=== PATIENT | female | born 1950 | race Caucasian/White ===

== ENCOUNTER → 2019-09-07 08:59 | Outpatient (CLI) | payer OTHER, SELFPAY ==
[2019-09-07 10:12] LABS: Add Manual Diff / Slide Review NO; Basophils Absolute Auto 0 /uL (0-100); Basophils Percent Auto 0.6 % (0-2); Eosinophils Absolute Auto 100 /uL (0-450); Eosinophils Percent Auto 1.7 % (2-4); Hematocrit 41.5 % (36-46); Hemoglobin 13.8 g/dL (12.0-16.0); Lymphocytes Absolute Auto 1600 /uL (1100-4500); Lymphocytes Percent Auto 43.2 % (25-40); Mean Corpuscular HGB Conc 33.3 % (30-36); Mean Corpuscular Hemoglobin 28.6 PG (26-34); Mean Corpuscular Volume 85.9 fL (80-100); Monocytes Absolute Auto 400 /uL (0-900); Monocytes Percent Auto 11.1 % (3-14); Neutrophils Absolute Auto 1600 /uL (1500-7000); Neutrophils Percent Auto 43.4 % (50-75); Platelet Count 267 X10^3/uL (150-400); Red Blood Cell Count 4.83 X10^6/uL (4.0-5.2); White Blood Cell Count 3.8 X10^3/uL (4.5-11.0)
[2019-09-07 10:31] LABS: Erythrocyte Sedimentation Rate 6 MM/HR (0-20)
[2019-09-07 10:38] LABS: Alanine Aminotransferase 17 IU/L (<35); Albumin 4.7 g/dL (3.5-5.0); Albumin Globulin Ratio 1.5 (1.0-2.8); Alkaline Phosphatase 69 U/L (38-126); Aspartate Aminotransferase 27 IU/L (14-36); BUN Creatinine Ratio 27.3 (6-22); Bilirubin Total 0.5 mg/dL (0.2-1.3); Blood Urea Nitrogen 21 mg/dL (7-17); Calcium 10.1 mg/dL (8.4-10.2); Carbon Dioxide 28 mmol/L (22-32); Chloride 104 mmol/L (98-107); Cholesterol 236 mg/dL (140-199); Estimated Glomerular Filt Rate > 60.0 mL/min (>60); Globulin 3.1 g/dL (1.7-4.1); Glucose 94 mg/dL (80-110); HDL Cholesterol 82 mg/dL (40-60); HEMOLYSIS < 15 (0-50); LDL Cholesterol Calculated 136 mg/dL (<100); Potassium 3.9 mmol/L (3.4-5.1); Sodium 141 mmol/L (137-145); Total Protein 7.8 g/dL (6.3-8.2); Triglycerides 88 mg/dL (35-150)
[2019-09-07 10:44] LABS: C-Reactive Protein Quant < 0.5 mg/dL (<1.0)
[2019-09-07 10:52] LABS: Free T4, Direct Thyroxine 0.83 ng/dL (0.78-2.19)
[2019-09-07 11:06] LABS: Thyroid Stimulating Hormone 4.75 uIU/mL (0.47-4.68)
== END ==
PROVIDERS: PCP Internal Medicine; Referring Provider Internal Medicine; Visit Provider Internal Medicine
DX: Z13.220 Encounter for screening for lipoid disorders (principal); Z13.6 Encounter for screening for cardiovascular disorders; Z79.01 Long term (current) use of anticoagulants; Z86.010 Personal history of colon polyps; I48.0 Paroxysmal atrial fibrillation; R63.4 Abnormal weight loss
CPT/HCPCS: 36415; 80053; 80061; 84439; 84443; 85025; 85651; 86140

== ENCOUNTER → 2020-02-02 10:42 | Outpatient (CLI) | payer OTHER, SELFPAY ==
[2020-02-02 11:40] LABS: Add Manual Diff / Slide Review NO; Basophils Absolute Auto 0 /uL (0-100); Basophils Percent Auto 0.7 % (0-2); Eosinophils Absolute Auto 0 /uL (0-450); Eosinophils Percent Auto 0.9 % (2-4); Hematocrit 40.1 % (36-46); Hemoglobin 13.2 g/dL (12.0-16.0); Lymphocytes Absolute Auto 1400 /uL (1100-4500); Lymphocytes Percent Auto 31.5 % (25-40); Mean Corpuscular HGB Conc 32.9 % (30-36); Mean Corpuscular Hemoglobin 28.3 PG (26-34); Monocytes Absolute Auto 500 /uL (0-900); Monocytes Percent Auto 11.2 % (3-14); Neutrophils Absolute Auto 2500 /uL (1500-7000); Neutrophils Percent Auto 55.7 % (50-75); Platelet Count 260 X10^3/uL (150-400); Red Blood Cell Count 4.66 X10^6/uL (4.0-5.2); Red Cell Distribution Width 14.8 % (11.6-14.8); White Blood Cell Count 4.5 X10^3/uL (4.5-11.0)
[2020-02-02 12:02] LABS: Alanine Aminotransferase 15 IU/L (<35); Albumin 4.5 g/dL (3.5-5.0); Albumin Globulin Ratio 1.8 (1.0-2.8); Alkaline Phosphatase 69 U/L (38-126); Aspartate Aminotransferase 27 IU/L (14-36); BUN Creatinine Ratio 27.4 (6-22); Bilirubin Total 0.6 mg/dL (0.2-1.3); Blood Urea Nitrogen 20 mg/dL (7-17); Calcium 9.9 mg/dL (8.4-10.2); Carbon Dioxide 31 mmol/L (22-32); Chloride 103 mmol/L (98-107); Estimated Glomerular Filt Rate > 60.0 mL/min (>60); Globulin 2.5 g/dL (1.7-4.1); Glucose 86 mg/dL (80-110); HEMOLYSIS < 15 (0-50); Potassium 4.6 mmol/L (3.4-5.1); Sodium 138 mmol/L (137-145)
[2020-02-02 12:18] LABS: Free T4, Direct Thyroxine 0.82 ng/dL (0.78-2.19)
[2020-02-02 12:32] LABS: Thyroid Stimulating Hormone 2.61 uIU/mL (0.47-4.68)
== END ==
PROVIDERS: PCP Internal Medicine; Referring Provider Internal Medicine; Visit Provider Internal Medicine
DX: I48.0 Paroxysmal atrial fibrillation (principal); Z79.01 Long term (current) use of anticoagulants
CPT/HCPCS: 36415; 80053; 84439; 84443; 85025

== ENCOUNTER → 2020-12-06 17:19 | Outpatient (CLI) | payer OTHER, SELFPAY ==
--- NOTE | 2020-12-06 17:19 | DI.MG.S_ITS ---
BILATERAL DIGITAL SCREENING MAMMOGRAM 3D/2D WITH CAD: 12/06/2020 CLINICAL: Routine screening. Comparison is made to exams dated: 06/24/2019 mammogram, 12/01/2017 mammogram, and 10/27/2016 mammogram - [facility]. The tissue of both breasts is heterogeneously dense. This may lower the sensitivity of mammography. Current study was also evaluated with a Computer Aided Detection (CAD) system. There are benign calcifications in both breasts. There also are benign post operative findings and biopsy clip in the right breast. No significant masses, calcifications, or other findings are seen in either breast. There has been no significant interval change. IMPRESSION: BENIGN There is no mammographic evidence of malignancy. A 1 year screening mammogram is recommended. This exam was interpreted at Station ID: [id number]. NOTE: For mammograms, a report in lay terms will be sent to the patient. Approximately 15% of breast malignancies will not be visualized mammographically. In the management of a palpable breast mass, a negative mammogram must not discourage biopsy of a clinically suspicious lesion. Electronically Signed By: David hicks/vick:12/09/2020 08:11:40 letter sent: Normal Exam ACR BI-RADS Category 2: Benign Finding(s) 3342F
== END ==
PROVIDERS: PCP Internal Medicine; Referring Provider Internal Medicine; Visit Provider Internal Medicine
DX: Z12.31 Encounter for screening mammogram for malignant neoplasm of breast (principal)
CPT/HCPCS: 77063; 77067

== ENCOUNTER → 2021-01-02 16:29 | Outpatient (CLI) | payer OTHER, SELFPAY ==
--- NOTE | 2021-01-02 16:31 | DI.RAD.S_ITS ---
PROCEDURE: XR ABDOMEN MIN 2V INDICATIONS: abd pain, generalized TECHNIQUE: 2 views of the abdomen were acquired. COMPARISON: None. FINDINGS: Surgical changes and devices: None. Bowel: No pneumoperitoneum. The bowel gas pattern is normal. Moderate stool is seen throughout the colon. Soft tissues: No masses; visualized solid organ contours appear normal in size. No suspicious abdominal calcifications. Bones: No suspicious bony abnormalities. Mild degenerative changes are seen in the spine. IMPRESSION: Nonspecific nonobstructive bowel gas pattern. Moderate stool in the colon. Dictated by: Ja Ma M.D. on 01/02/2021 at 17:13 Approved by: Ja Ma M.D. on 01/02/2021 at 17:14
[2021-01-02 17:41] LABS: Add Manual Diff / Slide Review NO; Basophils Absolute Auto 0 /uL (0-100); Basophils Percent Auto 0.5 % (0-2); Eosinophils Absolute Auto 0 /uL (0-450); Eosinophils Percent Auto 0.7 % (2-4); Hematocrit 40.1 % (36-46); Hemoglobin 13.2 g/dL (12.0-16.0); Lymphocytes Absolute Auto 1600 /uL (1100-4500); Lymphocytes Percent Auto 35.7 % (25-40); Mean Corpuscular Hemoglobin 28.3 PG (26-34); Mean Corpuscular Volume 85.7 fL (80-100); Monocytes Absolute Auto 400 /uL (0-900); Monocytes Percent Auto 9.7 % (3-14); Neutrophils Absolute Auto 2400 /uL (1500-7000); Neutrophils Percent Auto 53.4 % (50-75); Platelet Count 247 X10^3/uL (150-400); Red Blood Cell Count 4.68 X10^6/uL (4.0-5.2); Red Cell Distribution Width 14.6 % (11.6-14.8); White Blood Cell Count 4.5 X10^3/uL (4.5-11.0)
[2021-01-02 18:24] LABS: Alanine Aminotransferase 18 IU/L (<35); Albumin 4.5 g/dL (3.5-5.0); Albumin Globulin Ratio 1.6 (1.0-2.8); Alkaline Phosphatase 60 U/L (38-126); Amylase 77 U/L (30-110); Aspartate Aminotransferase 31 IU/L (14-36); Bilirubin Total 0.5 mg/dL (0.2-1.3); Blood Urea Nitrogen 18 mg/dL (7-17); Calcium 9.7 mg/dL (8.4-10.2); Carbon Dioxide 26 mmol/L (22-32); Chloride 105 mmol/L (98-107); Estimated Glomerular Filt Rate > 60.0 mL/min (>60); Globulin 2.9 g/dL (1.7-4.1); Glucose 91 mg/dL (80-110); HEMOLYSIS < 15 (0-50); Lipase 163 U/L (23-300); Potassium 4.2 mmol/L (3.4-5.1); Sodium 140 mmol/L (137-145); Total Protein 7.4 g/dL (6.3-8.2)
== END ==
PROVIDERS: PCP Internal Medicine; Referring Provider Internal Medicine; Visit Provider Internal Medicine
DX: R10.9 Unspecified abdominal pain (principal); I10 Essential (primary) hypertension
CPT/HCPCS: 36415; 74019; 80053; 82150; 83690; 85025

== ENCOUNTER → 2021-01-14 09:34 | Outpatient (CLI) | payer OTHER, SELFPAY ==
--- NOTE | 2021-01-14 09:35 | DI.US.S_ITS ---
PROCEDURE: US ABDOMEN COMPLETE INDICATIONS: ABDOMEN PAIN TECHNIQUE: Real-time scanning was performed of the abdominal and retroperitoneal organs, with image documentation. COMPARISON: None. FINDINGS: Liver: Liver is normal in size and homogeneous in echotexture. Multiple small liver cysts can be seen. Within the right liver, there is a nonvascular, nonshadowing hyperechoic lesion seen that measures up to 2.6 cm. Gallbladder: No findings of gallstones or sludge are seen. The gallbladder wall is not thickened, measuring 3 mm or less. No specific pericholecystic fluid is seen. The sonographic Hayes sign is negative. Biliary ducts: Intrahepatic bile ducts are non-dilated. Extrahepatic bile duct caliber measures 6-7 mm. Normal is 6-7 mm or less in diameter, or 10 mm or less post-cholecystectomy. Pancreas: Visualized portions of the pancreas are sonographically normal. Spleen: Spleen is normal in size and homogeneous in echotexture. Kidneys: Kidneys are normal in size and echotexture. Right kidney measures 10.7 cm long; left kidney measures 12.2 cm long. No hydronephrosis or nephrolithiasis. No solid masses. Aorta: Visualized aorta is normal in caliber at less than 3 cm. Iliacs: Proximal common iliac arteries are normal in caliber at less than 2.5 cm. IVC: Intrahepatic inferior vena cava is patent. Miscellaneous: No free abdominal fluid. IMPRESSION: The gallbladder demonstrates a normal sonographic appearance. No biliary dilatation is seen. There is a presumed 2.6 cm liver hemangioma seen. Multiple simple appearing liver cysts are also seen. Dictated by: Bertram Munoz M.D. on 01/14/2021 at 10:26 Approved by: Bertram Munoz M.D. on 01/14/2021 at 10:28
== END ==
PROVIDERS: PCP Internal Medicine; Referring Provider Internal Medicine; Visit Provider Internal Medicine
DX: R10.9 Unspecified abdominal pain (principal); K76.89 Other specified diseases of liver
CPT/HCPCS: 76700

== ENCOUNTER → 2021-12-08 14:19 | Outpatient (CLI) | payer OTHER, SELFPAY ==
--- NOTE | 2021-12-08 14:20 | DI.MG.S_ITS ---
BILATERAL DIGITAL SCREENING MAMMOGRAM 3D/2D WITH CAD: 12/08/2021 CLINICAL: Routine screening. Comparison is made to exams dated: 12/06/2020 mammogram - [facility], 06/24/2019 mammogram, and 12/01/2017 mammogram - [facility]. The tissue of both breasts is heterogeneously dense. This may lower the sensitivity of mammography. Current study was also evaluated with a Computer Aided Detection (CAD) system. There are benign calcifications in both breasts. There also are benign post operative findings and biopsy clip in the right breast. No significant masses, calcifications, or other findings are seen in either breast. There has been no significant interval change. IMPRESSION: BENIGN There is no mammographic evidence of malignancy. A 1 year screening mammogram is recommended. This exam was interpreted at Station ID: [id number]. NOTE: For mammograms, a report in lay terms will be sent to the patient. Approximately 15% of breast malignancies will not be visualized mammographically. In the management of a palpable breast mass, a negative mammogram must not discourage biopsy of a clinically suspicious lesion. Electronically Signed By: Ja carrillo/vick:12/08/2021 15:35:59 letter sent: Normal Exam ACR BI-RADS Category 2: Benign Finding(s) 3342F
== END ==
PROVIDERS: PCP Internal Medicine; Referring Provider Internal Medicine; Visit Provider Internal Medicine
DX: Z12.31 Encounter for screening mammogram for malignant neoplasm of breast (principal)
CPT/HCPCS: 77063; 77067

== ENCOUNTER → 2022-03-03 15:08 | Outpatient (CLI) | payer OTHER, SELFPAY ==
[2022-03-03 16:42] LABS: Add Manual Diff / Slide Review NO; Basophils Absolute Auto 0 /uL (0-100); Basophils Percent Auto 0.3 % (0-2); Eosinophils Absolute Auto 0 /uL (0-450); Eosinophils Percent Auto 0.9 % (2-4); Hematocrit 37.8 % (36-46); Hemoglobin 12.7 g/dL (12.0-16.0); Lymphocytes Absolute Auto 1400 /uL (1100-4500); Lymphocytes Percent Auto 32.6 % (25-40); Mean Corpuscular HGB Conc 33.6 % (30-36); Mean Corpuscular Hemoglobin 28.3 PG (26-34); Mean Corpuscular Volume 84.3 fL (80-100); Monocytes Absolute Auto 400 /uL (0-900); Monocytes Percent Auto 9.3 % (3-14); Neutrophils Absolute Auto 2500 /uL (1500-7000); Neutrophils Percent Auto 56.9 % (50-75); Platelet Count 251 X10^3/uL (150-400); Red Blood Cell Count 4.49 X10^6/uL (4.0-5.2); Red Cell Distribution Width 14.7 % (11.6-14.8); White Blood Cell Count 4.4 X10^3/uL (4.5-11.0)
[2022-03-03 16:57] LABS: Alanine Aminotransferase 13 IU/L (<35); Albumin 4.1 g/dL (3.5-5.0); Albumin Globulin Ratio 1.4 (1.0-2.8); Alkaline Phosphatase 55 U/L (38-126); Aspartate Aminotransferase 25 IU/L (14-36); Bilirubin Total 0.4 mg/dL (0.2-1.3); Blood Urea Nitrogen 27 mg/dL (7-17); Calcium 8.8 mg/dL (8.4-10.2); Carbon Dioxide 28 mmol/L (22-32); Chloride 105 mmol/L (98-107); Estimated Glomerular Filt Rate > 60 mL/min (>60); Globulin 2.9 g/dL (1.7-4.1); Glucose 105 mg/dL (80-110); HEMOLYSIS < 15 (0-50); Potassium 3.5 mmol/L (3.4-5.1); Sodium 140 mmol/L (137-145)
== END ==
PROVIDERS: PCP Internal Medicine; Referring Provider Internal Medicine; Visit Provider Internal Medicine
DX: I48.0 Paroxysmal atrial fibrillation (principal); M85.80 Other specified disorders of bone density and structure, unspecified site; Z79.01 Long term (current) use of anticoagulants
CPT/HCPCS: 36415; 80053; 85025

== ENCOUNTER → 2022-12-28 16:01 | Outpatient (CLI) | payer OTHER, SELFPAY ==
--- NOTE | 2022-12-28 | DI.MG.S_ITS ---
BILATERAL DIGITAL SCREENING MAMMOGRAM 3D/2D WITH CAD: 12/28/2022 CLINICAL: Routine screening. Comparison is made to exams dated: 12/08/2021 mammogram, 12/06/2020 mammogram - [facility], and 06/24/2019 mammogram - [facility]. Both breasts are heterogeneously dense, which may obscure small masses (category c / 51-75% glandular tissue). Current study was also evaluated with a Computer Aided Detection (CAD) system. There are benign calcifications in both breasts. There also are benign post operative findings and biopsy clip in the right breast. No significant masses, calcifications, or other findings are seen in either breast. There has been no significant interval change. IMPRESSION: BENIGN There is no mammographic evidence of malignancy. A 1 year screening mammogram is recommended. Based on the Tyrer Cuzick model (a risk assessment model) the patient's lifetime risk is 7.6% and her 10 year risk is 4.8%. According to the ACR, ACS, and NCCN guidelines, an annual breast MRI exam along with mammogram is recommended if the patient's lifetime risk is 20% or greater. This exam was interpreted at Station ID: [id number]. NOTE: For mammograms, a report in lay terms will be sent to the patient. Approximately 15% of breast malignancies will not be visualized mammographically. In the management of a palpable breast mass, a negative mammogram must not discourage biopsy of a clinically suspicious lesion. Electronically Signed By: Usama lara/vick:12/30/2022 08:08:52 letter sent: Normal Exam ACR BI-RADS Category 2: Benign Finding(s) 3342F
== END ==
PROVIDERS: PCP Internal Medicine; Referring Provider Internal Medicine; Visit Provider Internal Medicine
DX: Z12.31 Encounter for screening mammogram for malignant neoplasm of breast (principal)
CPT/HCPCS: 77063; 77067

== ENCOUNTER → 2023-03-02 15:17 | Outpatient (CLI) | payer OTHER, SELFPAY ==
--- NOTE | 2023-03-02 15:18 | DI.RAD.S_ITS ---
PROCEDURE: XR CHEST 2V INDICATIONS: cough x2 weeks, concern for pneumonia TECHNIQUE: 2 views of the chest were acquired. COMPARISON: None. FINDINGS: Surgical changes and devices: None. Lungs and pleura: Lungs are clear. No pleural effusions or pneumothorax. Mediastinum: Mediastinal contours are normal. Heart size is normal. Bones and chest wall: No suspicious bony abnormalities. Soft tissues appear unremarkable. IMPRESSION: No acute cardiopulmonary disease process. Dictated by: Eula Matthews MD, PhD on 03/02/2023 at 15:51 Approved by: Eula Matthews MD, PhD on 03/02/2023 at 15:51
== END ==
PROVIDERS: PCP Internal Medicine; Referring Provider Physician Assistant; Visit Provider Physician Assistant
DX: R05.9 Cough, unspecified (principal)
CPT/HCPCS: 71046

== ENCOUNTER → 2023-11-07 11:25 | Outpatient (CLI) | payer OTHER, SELFPAY ==
--- NOTE | 2023-11-07 11:27 | DI.RAD.S_ITS ---
PROCEDURE: XR FOOT LT MIN 3V INDICATIONS: L foot pain TECHNIQUE: 3 views of the foot were acquired. COMPARISON: None. FINDINGS: Bones: No fractures or dislocations. No suspicious bony lesions. Soft tissues: No tibiotalar joint effusion. Achilles tendon appears normal. IMPRESSION: No acute bony abnormality. Approved by: Tom Pelayo M.D. on 11/07/2023 at 11:40
== END ==
PROVIDERS: PCP Internal Medicine; Referring Provider Physician Assistant Medical; Visit Provider Physician Assistant Medical
DX: M79.672 Pain in left foot (principal)
CPT/HCPCS: 73630

== ENCOUNTER → 2024-03-03 11:12 | Outpatient (CLI) | payer OTHER, SELFPAY ==
--- NOTE | 2024-03-03 11:13 | DI.MG.S_ITS ---
BILATERAL DIGITAL SCREENING MAMMOGRAM 3D/2D WITH CAD: 03/03/2024 CLINICAL: Routine screening. Comparison is made to exams dated: 12/28/2022 mammogram, 12/08/2021 mammogram, and 12/06/2020 mammogram - [facility]. Both breasts are heterogeneously dense, which may obscure small masses (category c / 51-75% glandular tissue). Current study was also evaluated with a Computer Aided Detection (CAD) system. There is a benign mass in the left breast. There also are benign calcifications in both breasts. Additionally, there are benign post operative findings and biopsy clip in the right breast. No significant masses, calcifications, or other findings are seen in either breast. There has been no significant interval change. IMPRESSION: BENIGN There is no mammographic evidence of malignancy. A 1 year screening mammogram is recommended. Based on the Tyrer Cuzick model (a risk assessment model) the patient's lifetime risk is 7.2% and her 10 year risk is 4.9%. According to the ACR, ACS, and NCCN guidelines, an annual breast MRI exam along with mammogram is recommended if the patient's lifetime risk is 20% or greater. This exam was interpreted at Station ID: [id number]. NOTE: For mammograms, a report in lay terms will be sent to the patient. Approximately 15% of breast malignancies will not be visualized mammographically. In the management of a palpable breast mass, a negative mammogram must not discourage biopsy of a clinically suspicious lesion. Electronically Signed By: Gorge gracia/vick:03/06/2024 17:52:28 letter sent: Normal Exam ACR BI-RADS Category 2: Benign Finding(s) 3342F
== END ==
PROVIDERS: PCP Internal Medicine; Referring Provider Internal Medicine; Visit Provider Internal Medicine
DX: Z12.31 Encounter for screening mammogram for malignant neoplasm of breast (principal)
CPT/HCPCS: 77063; 77067

== ENCOUNTER → 2024-06-01 14:38 | Outpatient (CLI) | payer OTHER, SELFPAY ==
--- NOTE | 2024-06-01 15:37 | DI.RAD.S_ITS ---
PROCEDURE: XR CHEST 2V INDICATIONS: cough TECHNIQUE: 2 views of the chest were acquired. COMPARISON: [facility], CR, XR CHEST 2V, 03/02/2023, 15:26. FINDINGS: Surgical changes and devices: None. Lungs and pleura: Lungs are clear. No pleural effusions or pneumothorax. Mediastinum: Mediastinal contours are normal. Heart size is normal. Bones and chest wall: No suspicious bony abnormalities. Soft tissues appear unremarkable. IMPRESSION: No acute cardiopulmonary abnormality is seen. Approved by: Ja Ma M.D. on 06/01/2024 at 16:24
[2024-06-01 16:43] LABS: Add Manual Diff / Slide Review NO; Basophils Absolute Auto 0 /uL (0-100); Basophils Percent Auto 0.3 % (0-2); Eosinophils Absolute Auto 0 /uL (0-450); Eosinophils Percent Auto 0.7 % (2-4); Hematocrit 40.4 % (36-46); Hemoglobin 13.2 g/dL (12.0-16.0); Lymphocytes Absolute Auto 1300 /uL (1100-4500); Lymphocytes Percent Auto 32.1 % (25-40); Mean Corpuscular HGB Conc 32.7 % (30-36); Mean Corpuscular Hemoglobin 27.6 PG (26-34); Mean Corpuscular Volume 84.6 fL (80-100); Monocytes Absolute Auto 400 /uL (0-900); Monocytes Percent Auto 9.9 % (3-14); Neutrophils Absolute Auto 2300 /uL (1500-7000); Platelet Count 255 X10^3/uL (150-400); Red Blood Cell Count 4.77 X10^6/uL (4.0-5.2); Red Cell Distribution Width 15.4 % (11.6-14.8)
[2024-06-01 17:13] LABS: Cholesterol 232 mg/dL (140-199); HDL Cholesterol 91 mg/dL (40-60); LDL Cholesterol Calculated 118 mg/dL (<100); Triglycerides 117 mg/dL (35-150)
[2024-06-01 17:13] LABS: Alanine Aminotransferase 16 IU/L (<35); Albumin 4.1 g/dL (3.5-5.0); Albumin Globulin Ratio 1.4 (1.0-2.8); Alkaline Phosphatase 58 U/L (38-126); Aspartate Aminotransferase 31 IU/L (14-36); BUN Creatinine Ratio 26.7 (6-22); Bilirubin Total 0.4 mg/dL (0.2-1.3); Blood Urea Nitrogen 24 mg/dL (7-17); Calcium 9.2 mg/dL (8.4-10.2); Carbon Dioxide 26 mmol/L (22-32); Chloride 106 mmol/L (98-107); Estimated Glomerular Filt Rate > 60 mL/min (>60); Globulin 2.9 g/dL (1.7-4.1); Glucose 91 mg/dL (80-110); HEMOLYSIS < 15 (0-50); Potassium 3.8 mmol/L (3.4-5.1); Sodium 135 mmol/L (137-145)
[2024-06-01 17:29] LABS: C-Reactive Protein Quant < 0.5 mg/dL (<1.0); Vitamin D 25 Hydroxy (D3) 20.4 ng/mL (30.0-100.0)
[2024-06-01 17:54] LABS: TSH w/ Reflex to FT4 2.32 uIU/mL (0.47-4.68)
[2024-06-01 18:00] LABS: Erythrocyte Sedimentation Rate 87 MM/HR (0-20)
== END ==
PROVIDERS: PCP Internal Medicine; Referring Provider Internal Medicine; Visit Provider Internal Medicine
DX: E55.9 Vitamin D deficiency, unspecified; Z13.6 Encounter for screening for cardiovascular disorders; I48.0 Paroxysmal atrial fibrillation; Z79.01 Long term (current) use of anticoagulants; R53.83 Other fatigue; Z13.220 Encounter for screening for lipoid disorders; R05.9 Cough, unspecified
CPT/HCPCS: 36415; 71046; 80053; 80061; 82306; 84443; 85025; 85651; 86140

== ENCOUNTER 2024-06-11 16:13 | Emergency (ER) | payer OTHER, SELFPAY ==
[2024-06-11 16:15] VITALS: BP 127/81; PULSE 65; RESP 16; TEMP 36.9; O2SAT 99; BMI 22.1
--- NOTE | 2024-06-11 17:35 | ED.EXTPRO ---
HPI - Extremity Problem <Joann Fajardo PA-C - Last Filed: 06/11/24 19:43> General Chief complaint: Extremity Problem,Nontraumatic Stated complaint: rt foot swelling, px, hot to touch, AFIB Time Seen by Provider: 06/11/24 16:38 Source: patient Mode of arrival: Family Vehicle History of Present Illness HPI Narrative: 73-year-old woman presents with concern for pain in her right forefoot with swelling. Patient states that she was in [place] recently and came back last week. Since that time she is noted some mild swelling in her foot around her great toe and in the top of her foot. She states in the last 24 hours she has started to have pain it is worse when she is bearing weight and it is worse with even light touch over the top of her foot behind her toes. She has noticed a slight amount of redness. She does not believe she sustained any broken skin but does state that she often goes barefoot. She has not had any fevers or chills and denies any pain, redness, heat or swelling in her calf or any known injury or trauma to this foot. She denies any other complaints or concerns Related Data Previous Rx's Medication Instructions Recorded dabigatran etexilate 150 mg 150 mg PO BID #180 caps 06/01/24 capsule (Pradaxa) peg 3350-electrolytes 236 240 ml PO Q10M #4,000 mL 06/07/24 gram-22.74 gram-6.74 gram-5.86 gram solution (Golytely) cephalexin 500 mg capsule 500 mg PO Q8H 7 days #21 caps 06/11/24 Allergies Allergy/AdvReac Type Severity Reaction Status Date / Time No Known Drug Allergies Allergy Verified 06/01/24 14:02 Review of Systems <Joann Fajardo PA-C - Last Filed: 06/11/24 19:43> Review of Systems Narrative: See HPI Patient History <Joann Fajardo PA-C - Last Filed: 06/11/24 19:43> Medical History Adhesive capsulitis (~2009) Measles Chicken pox Anemia (~2008) Osteopenia (~2018) H/O adenomatous polyp of colon shelter current use of anticoagulant Paroxysmal atrial fibrillation (~2018) Surgical History Anesthesia History of colonoscopy (~2018) History of lumpectomy Family History Mother Lung cancer Hypertension Father Lung cancer Brother Hypertension Brother Drug overdose Grandfather Cancer Grandmother No problems noted. Grandfather Cancer Social History Smoking Status: Former smoker Smoking Status: Former smoker Exam <Joann Fajardo PA-C - Last Filed: 06/11/24 19:43> Narrative Exam Narrative: GENERAL: [73] year old patient appears stated age. Well-developed patient, in mild distress. HEAD: Atraumatic. Normocephalic. EYES: Pupils equal round and reactive. Extraocular motions intact. No scleral icterus. No injection or drainage. ENT: Nose without bleeding, purulent drainage. Airway patent. NECK: Trachea midline. CARDIOVASCULAR: Regular rate and rhythm without murmurs, gallops, or rubs. RESPIRATORY: Clear to auscultation. Breath sounds equal bilaterally. No wheezes, rales, or rhonchi. EXTREMITIES: There is mild swelling present about the distal right foot primarily the dorsum of the right foot. There is mild erythema present at the dorsum of the right foot proximal to the 2nd to 4th phalanges. There is exquisite sensitivity to light touch at this location. Tenderness with palpation under the ball of the foot as well when the foot is stretched/moved. Range of motion is intact. There is no calf tenderness popliteal fossa tenderness or calf swelling. Calves are equal in size bilaterally in circumference. Strong pedal pulse. The MTP joint itself is nontender without erythema. There is no significant erythema or erythema spreading up towards the ankle. No broken skin noted no calluses noted. No other edema or joint tenderness. NEURO: AOx3. SKIN: See extremities. No rash or erythema of visible areas Initial Vital Signs Initial Vital Signs: Vital Signs Temperature 98.4 F 06/11/24 16:15 Pulse Rate 65 06/11/24 16:15 Respiratory Rate 16 06/11/24 16:15 Blood Pressure 127/81 06/11/24 16:15 Pulse Oximetry 99 12/15/24 16:15 Oxygen Delivery Method Room Air 06/11/24 16:15 <Long Pack DO - Last Filed: 06/11/24 20:23> Initial Vital Signs Initial Vital Signs: Vital Signs Temperature 98.4 F 06/11/24 16:15 Pulse Rate 65 06/11/24 16:15 Respiratory Rate 16 06/11/24 16:15 Blood Pressure 127/81 06/11/24 16:15 Pulse Oximetry 99 06/11/24 16:15 Oxygen Delivery Method Room Air 06/11/24 16:15 Scores <Joann Fajardo PA-C - Last Filed: 06/11/24 19:43> Yesi Criteria for DVT Active Cancer (Treatment within 6 months): No Bedridden recently >3 days or major surgery within 4 weeks: No Calf Swelling >3cm compared to other leg: No Collateral (nonvericose) superficial veins present: No Entire leg swollen: No Localized tenderness along the deep vein system: No Pitting edema, confined to symtomatic leg: No Paralysis, paresis, or recent plaster immobilization of ext: No Previously documented DVT: No Alternative dx to DVT as likely or more likely: Yes Yesi criteria for DVT: -2 <DO Deena Mckeon Last Filed: 06/11/24 20:23> Yesi Criteria for DVT Wells' criteria for DVT: -2 Course <Joann Fajardo PA-C - Last Filed: 06/11/24 19:43> Orders Ordered: ED Orders 06/11/24 17:34 XR foot RT min 3V Stat Vital Signs Vital signs: Vital Signs - 8 hr 06/11/24 16:15 06/11/24 18:33 Temperature 98.4 F Pulse Rate 65 63 Respiratory Rate 16 18 Blood Pressure 127/81 139/76 Pulse Oximetry 99 100 Oxygen Delivery Method Room Air Room Air <Long Pack DO - Last Filed: 06/11/24 20:23> Orders Ordered: ED Orders 06/11/24 17:34 XR foot RT min 3V Stat Vital Signs Vital signs: Vital Signs - 8 hr 06/11/24 16:15 06/11/24 18:33 Temperature 98.4 F Pulse Rate 65 63 Respiratory Rate 16 18 Blood Pressure 127/81 139/76 Pulse Oximetry 99 100 Oxygen Delivery Method Room Air Room Air MDM - Extremity (Nontraumatic) <Joann Fajardo PA-C - Last Filed: 06/11/24 19:43> Differential Diagnosis Differential diagnosis: Likely cellulitis and other (MTP Joint arthritis) Medical Records Attestation: I reviewed the patient's medical records. Imaging Data Extremity x-ray #1: My Impression: Agree with Radiology interpretation Radiologist's Impression: [address] [address] XRay Report Signed Patient: Carola Robertson MR#: [id number] : 1950 Acct:[id number] Age/Sex: 73 / F Date of Service: 06/11/24 Loc: ED Accession Number: [id number] Procedure: XR foot RT min 3V Ordering Provider: Joann Fajardo PA-C PROCEDURE: XR FOOT RT MIN 3V INDICATIONS: R forefoot pn w/weightbear no injury TECHNIQUE: 3 views of the foot were acquired. COMPARISON: [facility], , XR FOOT LT MIN 3V, 11/07/2023, 11:48. FINDINGS: Bones: [id number] 1st MTP joint space narrowing. No acute displaced fracture or dislocation. Soft tissues: No suspicious calcifications. IMPRESSION: No acute radiographic abnormality. First MTP arthrosis. If there is high concern for further derangement, consider MRI evaluation. Dictated by: Usama Fan M.D. on 06/11/2024 at 18:13 Approved by: Usama Fan M.D. on 06/11/2024 at 18:13 [facility] Narrative Medical decision making narrative: This is a 73-year-old woman who is on blood thinner presenting with concern for mild swelling in her right foot for the past week with new pain developing in the last day with some mild associated redness on the top of her foot. Exam is suggestive of a early cellulitis. As she has significant tenderness even with light touch to the dorsum of her foot distally. Her MTP joint itself is nontender and does not appear significantly inflamed, thus I am less suspicious for gout. Patient also has no history of similar. X-rays obtained for further evaluation given she also has new pain with weight-bearing in the last day. These returned negative for fracture but show joint space narrowing at the MTP and exam consistent with arthritic changes. Patient endorses that she has known arthritis. It is possible that this is an incidental finding on the x-ray and is not the cause of her pain/symptoms. Or it is possible that her pain and symptoms could be multifactorial. Exam does not suggest a DVT and patient is on a blood thinner which makes this less likely. Wells criteria for DVT is -2. Recommend that the patient take Tylenol, use compression with Enrique wrap and elevation, monitor for increasing redness pain or swelling fevers or other symptoms. Given concern for an early cellulitis prescription for cephalexin for 7 days. Advised to follow up with her PCP. Return precautions provided, follow-up plan discussed, all questions answered. 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 [ 1] New medication prescriptions sent to your pharmacy: [Cephalexin] [ ] New medication written as a paper prescription [ ] No new medications given *Please follow up with your primary care provider in 2-3 days, call for an appointment. Let them know you were seen in the Emergency Department and that we ask that you be seen in follow up. We will electronically transmit a record of today's note if your PCP is in our system. You came in today with concern for pain in the top of your left foot and pain with stepping on your foot in her forefoot. As well as some swelling. Your exam is concerning for a cellulitis. It does appear to be mild at this point. Another possibility is that you may have gout although I think this is unlikely based on your exam, and you have not had this previously. We obtained x-rays of your foot for further evaluation and this did show arthritis of your joint at the base of your great toe. It sounds like this is something you have known about. And this may be incidental and not necessarily contributing to her current pain. However it is possible that some of your pain could be due to arthritic type pain and changes. I recommend taking Tylenol for pain, elevating your foot when you are at rest minimizing weight-bearing if it is painful for you to walk on. Take the antibiotics as prescribed monitor for new or worsening symptoms such as redness traveling up your leg, developing fevers or increasing swelling or pain. Please follow up with your primary care provider. *If you do not have a primary care provider please contact the [facility] Resource line at [phone]. They will ask some questions about your medical history and help get you set up with a doctor in the community. *Return to Emergency Department if you should have any new, worsening or concerning symptoms, such as [fever greater than 101 F, shaking chills, worsening pain, persistent vomiting or other bothersome symptoms] Prescriptions: New cephalexin 500 mg capsule 500 mg PO Q8H 7 Days Qty: 21 0RF No Action peg 3350-electrolytes [Golytely] 236-22.74-6.74 -5.86 gram recon soln 240 ml PO Q10M Qty: 4000 0RF Rx Instructions: take as directed by Physician Pradaxa 150 mg capsule 150 mg PO BID Qty: 180 3RF Referrals: Pastor Hansen MD [Primary Care Provider] - Stand Alone Forms: Patient Portal/API/Survey ED Sign-out <Long Pack, DO - Last Filed: 06/11/24 20:23> Cosign ED Attending Cosallyature Attestation: Dr Pack Co-Sign Statement: I was available for consultation during this patient's emergency department visit. This chart is signed by myself for administrative purposes only. I did not have direct contact with this patient during this visit. They were seen independently by the APC.
[2024-06-11 18:33] VITALS: BP 139/76; PULSE 63; RESP 18; O2SAT 100
== END 2024-06-11 18:33 | disposition home or self-care (01) ==
PROVIDERS: Emergency Provider Student in an Organized Health Care Education/Training Program; PCP Internal Medicine
DX: L03.115 Cellulitis of right lower limb (principal)
CPT/HCPCS: 73630; 99283

== ENCOUNTER → 2024-06-27 13:16 | Outpatient (CLI) | payer OTHER, SELFPAY | LOC: RESP 13:17 | PROVIDERS: PCP Internal Medicine; Referring Provider Internal Medicine; Visit Provider Internal Medicine | DX: R05.9 Cough, unspecified (principal); R94.2 Abnormal results of pulmonary function studies; R53.82 Chronic fatigue, unspecified | CPT/HCPCS: 94060; 94726; 94729 ==

== ENCOUNTER 2024-07-07 10:16 | Day surgery (SDC) | payer OTHER, SELFPAY ==
--- NOTE | 2024-07-07 | PATH_ITS ---
[facility] Accession Number: [id number] No. of containers..01 Tissue . 01 Material submitted: . rectum - RECTAL POLYP . 01 Diagnosis: RECTAL POLYP: Hyperplastic polyp. GAMAL 07/10/2024 1127 Local . 01 Electronically signed: . Dee Dee Stokes MD, Pathologist NPI- [id number] . 01 Gross description: . Received in formalin with two patient identifiers and rectal polyp, is a single cheatham soft tissue fragment 0.7 cm in greatest dimension. Submitted in cassette A1. ([id number]) /GAMAL 07/09/2024 0535 Local . 01 Pathologist provided ICD-10: D12.8 . 01 CPT . 739326 Specimen Comment: A courtesy copy of this report has been sent to [facility] Pathology Performed at: [address] [facility] [id number] MD Lorenzo Villalobos MD Phone: [phone]
[2024-07-07 10:37] VITALS: BP 122/74; PULSE 95; RESP 16; TEMP 36.8; O2SAT 98
[2024-07-07] MEDS: SODIUM CHLORIDE 0.9% 1,000 ML 84 ML IV (10:52)
--- NOTE | 2024-07-07 11:15 | P.HP_ITS ---
History of Present Illness History of Present Illness Date Patient Seen: 07/07/24 Time Patient Seen: 11:16 Chief complaint: Colonoscopy Narrative: 73-year-old white female presents for screening colonoscopy. Takes Pradaxa for AFib. [facility] Medical History (Updated 07/07/24 @ 11:16 by Jay Anglin MD) Colon cancer screening Adhesive capsulitis (~2009) Measles Chicken pox Anemia (~2008) Osteopenia (~2017) H/O adenomatous polyp of colon [employer] for [employer] current use of anticoagulant Paroxysmal atrial fibrillation (~2018) Surgical History Anesthesia History of colonoscopy (~2018) History of lumpectomy Family History Mother Lung cancer Hypertension Father Lung cancer Brother Hypertension Brother Drug overdose Grandfather Cancer Grandmother No problems noted. Grandfather Cancer Social History Smoking Status: Former smoker alcohol intake: current Meds Home Medications and Allergies Home Medications Medication Instructions Recorded Confirmed Type dabigatran etexilate 150 mg 150 mg PO BID #180 caps 06/01/24 07/07/24 Rx capsule (Pradaxa) peg 3350-electrolytes 236 240 ml PO Q10M #4,000 mL 06/07/24 06/14/24 Rx gram-22.74 gram-6.74 gram-5.86 gram solution (Golytely) Allergies Allergy/AdvReac Type Severity Reaction Status Date / Time No Known Drug Allergies Allergy Verified 07/07/24 10:36 Review of Systems Review of Systems ROS: Yes All systems reviewed with the patient and are negative except as otherwise documented Exam Vital Signs (past 8 hours): - 07/07/24 10:37 Temperature 98.2 F Pulse Rate 95 H Respiratory Rate 16 Blood Pressure 122/74 Pulse Oximetry 98 Oxygen Delivery Method Room Air Oxygen Delivery Method Room Air Narrative Exam Narrative: Gen: NAD, sitting comfortably in bed, appears well HEENT: Sclera are anicteric, head is normocephalic and atraumatic, trachea is midline. CV: RRR, no JVD Resp: clear to auscultation bilaterally, equal chest wall movement bilaterally Abd: soft, nontender, normoactive bowel sounds Ext: no edema, full range of motion Neuro: Cranial nerves II-XII grossly intact, no focal deficits Skin: No erythema or ecchymosis Assessment & Plan Assessment and plan (1) care home current use of anticoagulant: Status: Chronic (2) Colon cancer screening: Status: Acute (3) H/O adenomatous polyp of colon: Problem details: 2019 scope Status: Inactive Assessment & Plan narrative: Patient presents for colonoscopy Risks, benefits, alternatives to colonoscopy explained, including but not limited to bowel perforation or other serious complication requiring surgery at less than 1 in 5000 colonoscopies, abdominal pain, cramping or bleeding and less than 1% of colonoscopies, and the chances that we find a diagnosis that would require further intervention of about 2%. Patient agrees to proceed. Time-Based Coding :: [TOTAL MINUTES] spent with patient and on the chart (including review of chart, obtaining history, exam, reviewing outside data, placing orders, documenting exam and treatment plan, and counseling patient) on [DATE].
--- NOTE | 2024-07-07 11:34 | PM.OP.COLON ---
Operative Date/Time/Diagnoses Date of procedure: 07/07/24 Time of procedure: 11:34 Pre-op diagnosis: Personal history of polyps Post-op diagnosis: same (Rectal polyp, likely hyperplastic) Procedure & Clinicians Study performed: Colonoscopy with cold snare polypectomy Same procedure as scheduled: Yes Indications: Personal history of polyps Surgeon: Jay Anglin Procedure Notes SCOAP/Timeout: Performed Procedure in detail: Time-out was performed. Mac was induced. Patient was placed in left lateral decubitus position. The perineum was inspected without any gross abnormality. Lubricated pediatric colonoscope was inserted and advanced to the cecum. The terminal ileum was intubated. The colonoscope was withdrawn slowly inspecting the circumference of the colon. Very small polyps may have been missed, prep quality was adequate. Likely hyperplastic polyp in the rectum was removed with cold snare polypectomy and retrieved. Retroflexed view of the rectum showed small, non prolapsed nonbleeding internal hemorrhoids. The scope was withdrawn the patient was taken to PACU in good condition. Scope withdrawal time: 6 Sedation minutes: 13 Findings: polyp(s) Specimen(s): other (Rectal polyp) Complications: none Post-procedure Recommendations: Colonoscopy in 10 years Follow up: as needed Disposition: PACU
[2024-07-07 11:37] VITALS: BP 86/49; PULSE 63; RESP 22; TEMP 36.2; O2SAT 99
[2024-07-07 11:42] VITALS: BP 89/48; PULSE 62; RESP 16; O2SAT 99
[2024-07-07 11:47] VITALS: BP 98/57; PULSE 64; RESP 18; TEMP 36.2; O2SAT 100
[2024-07-07 11:53] VITALS: BP 106/62; PULSE 60; RESP 14; O2SAT 100
== END 2024-07-07 12:05 | disposition home or self-care (01) ==
PROVIDERS: PCP Internal Medicine; Referring Provider Surgery; Visit Provider Surgery
PROC: 0DJD8ZZ Inspection of Lower Intestinal Tract, Via Natural or Artificial Opening Endoscopic (ICD-10-PCS; CPT 45378; principal; 2024-07-07 11:15)
DX: Z12.11 Encounter for screening for malignant neoplasm of colon (principal); Z86.0101 Personal history of adenomatous and serrated colon polyps; K62.1 Rectal polyp; I48.0 Paroxysmal atrial fibrillation; Z79.01 Long term (current) use of anticoagulants; Z87.891 Personal history of nicotine dependence; Z85.828 Personal history of other malignant neoplasm of skin
CPT/HCPCS: 45385; J2704

== ENCOUNTER → 2025-03-16 14:46 | Outpatient (CLI) | payer OTHER, SELFPAY ==
--- NOTE | 2025-03-16 14:48 | DI.MG.S_ITS ---
MM screening mammo BI: 03/16/2025. BI-RADS: 2 CLINICAL: 74-year old female for bilateral screening mammogram. Tyrer-Cuzick lifetime risk of 5.9%. No personal or first-degree family history of breast cancer. The patient had a prior right breast biopsy. PRIOR EXAMS 03/03/2024, 12/28/2022, 12/08/2021, 12/06/2020. MAMMOGRAPHY TECHNIQUE: 2D and 3D (tomosynthesis) digital mammographic views obtained, with additional images as needed for full coverage. Current study was also evaluated with a Computer Aided Detection (CAD) system. DENSITY C. The breasts are heterogeneously dense, which may obscure small masses. MAMMOGRAPHY FINDINGS Right: Biopsy marker present on the right. There are no suspicious masses, calcifications, or other findings in the breast. Left: No suspicious mass, asymmetry, microcalcification, or other abnormality seen. IMPRESSION: Right * No evidence of malignancy with benign findings. Left * No evidence of malignancy. RECOMMENDATIONS Bilateral * Annual screening mammography. OVERALL ASSESSMENT CATEGORY BI-RADS-2: Benign. The [employer] recommends annual screening mammography beginning at age 40 for women with average risk of breast cancer. ELECTRONICALLY SIGNED: Zuleyka Loaiza M.D. on 03/16/2025 at 09:38:19 PM PT Interpreting Station ID: [id number]
== END ==
PROVIDERS: PCP Internal Medicine; Referring Provider Internal Medicine; Visit Provider Internal Medicine
DX: Z12.31 Encounter for screening mammogram for malignant neoplasm of breast (principal); R92.333 Mammographic heterogeneous density, bilateral breasts
CPT/HCPCS: 77063; 77067

== ENCOUNTER → 2025-05-01 17:00 | Outpatient (CLI) | payer OTHER, SELFPAY ==
--- NOTE | 2025-05-01 17:02 | DI.RAD.S_ITS ---
PROCEDURE: XR ABDOMEN MIN 2V INDICATIONS: constipation TECHNIQUE: 2 views of the abdomen were acquired. COMPARISON: [facility], , XR ABDOMEN MIN 2V, 01/02/2021, 16:47. FINDINGS: Surgical changes and devices: None. Bowel: No pneumoperitoneum. Increased quantity of solid colonic stool, predominantly in the proximal colon. There are several air-filled, dilated small bowel loops as well as air-filled splenic flexure colon. There are no acute air-fluid levels. Soft tissues: No masses; visualized solid organ contours appear normal in size. No suspicious abdominal calcifications. Bones: No suspicious bony abnormalities. IMPRESSION: Increased quantity of solid stool suggesting obstipation. This is less severe compared to 01/02/21. Dilated air-filled small bowel loops but without other signs of stasis. This is nonspecific. Dictated by: Hyacinth Li M.D. on 05/02/2025 at 14:27 Approved by: Hyacinth Li M.D. on 05/02/2025 at 14:29
[2025-05-01 17:36] LABS: Add Manual Diff / Slide Review NO; Hematocrit 40.9 % (36-46); Hemoglobin 13.5 g/dL (12.0-16.0); Lymphocytes Absolute Auto 1700 /uL (1100-4500); Mean Corpuscular HGB Conc 33.1 % (30-36); Mean Corpuscular Hemoglobin 27.5 PG (26-34); Mean Corpuscular Volume 83.1 fL (80-100); Platelet Count 280 X10^3/uL (150-400)
[2025-05-01 18:09] LABS: Alanine Aminotransferase 16 IU/L (<35); Albumin 4.7 g/dL (3.5-5.0); Albumin Globulin Ratio 1.7 (1.0-2.8); Alkaline Phosphatase 63 U/L (38-126); Blood Urea Nitrogen 16 mg/dL (7-17); Calcium 10.0 mg/dL (8.4-10.2); Carbon Dioxide 28 mmol/L (22-32); Chloride 103 mmol/L (98-107); Estimated Glomerular Filt Rate > 60 mL/min (>60); Globulin 2.7 g/dL (1.7-4.1); Glucose 96 mg/dL (70-99); HEMOLYSIS < 15 (0-50); Potassium 4.1 mmol/L (3.4-5.1); Sodium 139 mmol/L (137-145); Total Protein 7.4 g/dL (6.3-8.2)
== END ==
PROVIDERS: PCP Internal Medicine; Referring Provider Internal Medicine; Visit Provider Internal Medicine
DX: K59.00 Constipation, unspecified (principal); K92.2 Gastrointestinal hemorrhage, unspecified
CPT/HCPCS: 36415; 74019; 80053; 85025